=== PATIENT | female | born 1965 | race Caucasian/White ===

== ENCOUNTER 2023-04-19 10:00 | Day surgery (SDC) | payer BC, OTHER ==
[2023-04-17 09:50] LABS: Absolute Lymphocytes (CBC) 2.4 K/uL (0.7-4.9); Hematocrit 39.1 % (36.0-45.0); Lymphocytes % 37.8 % (15.3-44.8); MCV 96.5 fL (80-100); MPV 8.1 fL (7.6-11.3); Platelets 243 thou/uL (152-406); RBC Red Blood Cell Count 4.05 M/uL (3.86-4.86)
[2023-04-17 09:58] LABS: Protime INR 0.94
[2023-04-17 10:04] LABS: Potassium 4.4 mEq/L (3.5-5.1)
--- NOTE | 2023-04-17 11:57 | RAD REPORT ---
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 Hypertension COMPARISON: Abdomen 1 View (KUB) dated 09/04/2016; CHEST PA AND LAT 2 VIEW dated 10/18/2015; CHEST PA A ND LAT 2 VIEW dated 09/06/2015; CHEST SINGLE VIEW dated 06/12/2012 TECHNIQUE: PA and lateral views of the chest were obtained. FINDINGS: The lungs are clear. Heart size is normal and central vasculature is within normal limits. No pleural effusion or pneumothorax seen. No acute bony finding noted. IMPRESSION: No acute cardiopulmonary process.
--- NOTE | 2023-04-17 18:25 | EKG ---
Test Date: 2023-04-17 Test Time: 09:08:01 Gutter Installer: KIMO MEASUREMENT RESULTS: Intervals: Rate: 68 NC: 142 QRSD: 80 QT: 396 QTc: 421 [place]: P: 26 NC: 142 QRS: -4 T: 32 INTERPRETIVE STATEMENTS: Normal sinus rhythm Normal ECG Compared to ECG 06/12/2012 07:27:02 ST (T wave) deviation no longer present Electronically Signed On 04-17-23 18:24:28 CDT by Anthony Lee
[2023-04-19] MEDS ORDERED: NA CHLORIDE 0.9% 500 ML ONE (10:17)
[2023-04-19 10:58] VITALS: TEMP 97.5
[2023-04-19] MEDS ORDERED: LIDOCAINE 1% 20 ML MDV ONE (12:26)
[2023-04-19] MEDS ORDERED: HEPA 1000U/500MLS 2,000 UNIT/1,000 ML BAG IV ONE (12:26)
[2023-04-19] MEDS ORDERED: MIDAZOLAM HCL 2 MG/2 ML INJ ONE ×2 (12:27→13:15)
[2023-04-19] MEDS ORDERED: ASPIRIN 325 MG TAB ONE (12:27)
[2023-04-19] MEDS ORDERED: FENTANYL CITR 100 MCG/2 ML ONE (12:27)
[2023-04-19] MEDS ORDERED: CLOPIDOGREL 75 MG TABLET ONE (12:27)
[2023-04-19] MEDS ORDERED: ATROPINE SULF 1 MG/10 ML SYR IV ONE (12:28)
[2023-04-19] MEDS ORDERED: HEPARIN 10,000 UNIT/10 ML VIAL IV ONE (12:28)
[2023-04-19] MEDS ORDERED: TICAGRELOR 90 MG TABLET PO ONE (12:28)
--- NOTE | 2023-04-19 14:35 | OP ---
Date of Procedure: 04/19/2023 Surgeon: SARA RUTLEDGE Procedures Performed: 1.Selective coronary angiogram. 2.Left heart catheterization. Indication: Unstable angina. Access: Right radial artery 6-Ecuadorean closed with TR band. Complications: None. Bleeding: Less than 20 mL. Anesthesia: Total sedation time was 30 minutes, used fentanyl and Versed. Description Of Procedure: After risks, benefits, and alternatives were explained, the patient agreed to the procedure and signed informal consent. Patient was brought into the cardiac catheterization laboratory, prepped and draped in usual sterile fashion. Then I accessed right radial artery using [employer] micropuncture kit, placed 6-Ecuadorean Slender sheath, took 5-Ecuadorean [place] 4 catheter into the a ortic root, engaged left main and then right coronary artery and took standard views and the catheter was pushed over the wire into the LV. LVEDP was measured and pullback did not record a gradient. I then removed the catheter and the sheath, placed TR band with good hemostasis. Findings: 1.Left main; large and normal. 2.LAD; large and normal. Normal diagonal branches. 3.Left circumflex; small, nondominant and normal. 4.RCA; very large and dominant and normal. 5.Elevated LVEDP between 20 and 24 mmHg. Conclusion: 1.Normal coronary arteries. 2.Elevated LVEDP, likely due to diastolic dysfunction. Recommendation: Medical management. /JR Voice ID: [id number] Report ID: [id number]
[2023-04-19 15:21] VITALS: BP 123/87; O2SAT 98
== END 2023-04-19 15:29 | disposition home or self-care (01) ==
LOC: CCL 10:00
PROVIDERS: ATTEND Internal Medicine
DX: I20.0 Unstable angina (principal); I10 Essential (primary) hypertension; I51.7 Cardiomegaly; Z87.891 Personal history of nicotine dependence; Z79.899 Other long term (current) drug therapy; Z88.5 Allergy status to narcotic agent; Z91.09 Other allergy status, other than to drugs and biological substances
CPT/HCPCS: 36415; 71046; 76937; 80048; 85025; 85610; 85730; 93005; 93458; C1893; J0461; J2001; J2250; J3010; J7040; Q9966